=== PATIENT | male | born 1990 | race American Indian/Alaskan Native ===

== ENCOUNTER 2021-05-30 01:28 | Emergency (ER) | payer OTHER ==
[~2021-05-30] VITALS: Ht 175.3 cm; Wt 72.6 kg
== END 2021-05-30 03:50 | disposition home or self-care (01) ==
LOC: ED 01:28
DX: H57.89 Other specified disorders of eye and adnexa (principal)
CPT/HCPCS: 99283

== ENCOUNTER 2021-09-05 18:51 | Emergency (ER) | payer OTHER ==
[~2021-09-05] VITALS: Ht 175.3 cm; Wt 81.2 kg
[2021-09-05] MEDS ORDERED: NARCAN4 MG INH (22:27)
== END 2021-09-05 22:51 | disposition home or self-care (01) ==
LOC: ED 18:51
DX: T40.411A Poisoning by fentanyl or fentanyl analogs, accidental (unintentional), initial encounter (principal); T51.91XA Toxic effect of unspecified alcohol, accidental (unintentional), initial encounter
CPT/HCPCS: 36415; 80053; 81001; 85025; 99284; G0480; J7030

== ENCOUNTER 2022-11-08 21:40 | Emergency (ER) | payer OTHER | END 2022-11-08 23:10 | disposition short-term general hospital (02) | LOC: ED 21:40 | DX: S51.812A Laceration without foreign body of left forearm, initial encounter (principal); X78.1XXA Intentional self-harm by knife, initial encounter; Z20.822 Contact with and (suspected) exposure to COVID-19 ==

== ENCOUNTER 2024-04-12 23:35 | Emergency (ER) | payer OTHER ==
[~2024-04-12] VITALS: Ht 175.3 cm; Wt 78.9 kg
[~2024-04-12 23:35] MED LIST: NARCAN4 MG INH
[2024-04-13 00:57] VITALS: BP 133/81
[2024-04-13] MEDS ORDERED: ACETAMINOPHEN 325 MG TAB PO ONE (01:00)
== END 2024-04-13 00:57 | disposition other institution, planned readmission (95) ==
LOC: ED 23:35
DX: Z02.89 Encounter for other administrative examinations (principal); S20.212A Contusion of left front wall of thorax, initial encounter; M25.511 Pain in right shoulder; V89.2XXA Person injured in unspecified motor-vehicle accident, traffic, initial encounter; Z79.899 Other long term (current) drug therapy
CPT/HCPCS: 71045; 73030; 99284-25; A9270